=== PATIENT | male | born 1945 | race Caucasian/White ===

== ENCOUNTER 2019-05-30 13:48 | Outpatient (CLI) | payer MEDICARE | END 2019-05-30 13:49 | disposition home or self-care (01) | LOC: DTY/OP 13:48 | PROVIDERS: ATTEND Nurse Practitioner Family | DX: E11.65 Type 2 diabetes mellitus with hyperglycemia (principal) | CPT/HCPCS: 97802 ==

== ENCOUNTER 2019-06-29 06:58 | Inpatient (IN) | payer MEDICARE ==
[2019-06-29 07:43] LABS: #Basophils 0.1 thou/uL (0.0-0.2); #Eosinphils 0.4 thou/uL (0.0-0.7); #Monocytes 0.6 thou/uL (0.11-0.59); #Neutrophils 4.1 thou/uL (1.40-6.50); %Basophils 2.3 % (0.0-1.0); %Eosinophils 6.6 % (0.0-10.0); %Lymphocytes 15.8 % (21.0-51.0); %Monocytes 9.8 % (0.0-10.0); %Neutrophils 65.5 % (42.0-75.0); Hemoglobin 10.3 g/dL (14.0-18.0); Mean Corpuscular HGB CONC 32.1 g/dL (32.0-36.0); Mean Corpuscular Hemoglobin 31.1 pg (27.0-31.0); Mean Corpuscular Volume 96.8 fL (78.0-98.0); Mean Platelet Volume 8.9 fL (7.4-10.4); Platelet Count 115 thou/uL (130-400); RBC Distribution Width 14.2 % (11.5-14.5); Red Blood Cell (RBC) Count 3.32 mill/uL (4.70-6.10); White Blood Cell (WBC) Count 6.2 thou/uL (4.8-10.8)
[2019-06-29 07:47] LABS: ALT (SGPT) 50 U/L (8-55); AST (SGOT) 44 U/L (5-34); Albumin 3.4 g/dL (3.4-4.8); Alkaline Phosphatase 77 U/L (40-150); Anion Gap 13 mmol/L (10-20); BUN (Urea Nitrogen) 23 mg/dL (8.4-25.7); Bilirubin, Total 1.1 mg/dL (0.2-1.2); CK (CPK) 84 U/L (30-200); Calc. Creatinine Clearance 0 mL/min (70-130); Calcium 8.8 mg/dL (7.8-10.44); Carbon Dioxide 26 mmol/L (23-31); Chloride 105 mmol/L (98-107); Estimated GFR-MDRD 40; Glucose 105 mg/dL (83-110); Lipase 10 U/L (8-78); Potassium 4.5 mmol/L (3.5-5.1); Protein, Total 6.4 g/dL (5.8-8.1); Sodium 139 mmol/L (136-145)
--- NOTE | 2019-06-29 08:17 | RAD ---
Chest one view HISTORY: Dyspnea. FINDINGS: No comparison. Cardiac silhouette is magnified and enlarged. Pulmonary vasculature is engor ged with widespread reticulonodular interstitial prominence. Mediastinum is midline with postoperative changes. Right lateral costophrenic angle is excluded from the image. No lobar consolid ation or evidence of pneumothorax. flight agent leads overlie the chest. IMPRESSION: Cardiomegaly with pulmonary vascular congestion. Consider CHF.
[2019-06-29] MEDS ORDERED: Furosemide 40 MG/4 ML VIAL ONE (13:29)
[2019-06-29] MEDS ORDERED: Furosemide 40 MG/4 ML VIAL SLOW IVP SCH (14:00)
[2019-06-29] MEDS ORDERED: Albuterol Sulfate 2.5 mg/3 ml Neb NEB PRN (17:20)
[2019-06-29] MEDS ORDERED: diphenhydrAMINE 50 MG CAP PO PRN (17:20)
[2019-06-29] MEDS ORDERED: Dextrose 5% in Water 1,000 ML IV PRN (17:45)
[2019-06-29] MEDS ORDERED: Dextrose 50% Abboject 50 ML SYRINGE SLOW IVP PRN (17:45)
--- NOTE | 2019-06-29 20:17 | HP ---
CHIEF COMPLAINT: Shortness of breath. HISTORY OF PRESENT ILLNESS: Mr. Appiah is a very pleasant 73-year-old male with past medical history significant for coronary artery disease, status post 4-vessel CABG in 2007, congestive heart failure, unknown if this is systolic or diastolic at this time, stage 3 chronic kidney disease, type 2 diabetes mellitus , and morbid obesity, who presented to the hospital with complaints of worsening shortness of breath. The patient describes both worsening dyspnea on exertion as well as orthopnea. He has had at least a 5-pound weight gain, and has noticed significant swelling in his bilateral lower extremities. He states that he started noticing some shortness of breath about 2 months ago. Over the last couple of days, however, his symptoms have worsened. Last night, he could not lie flat or get any rest. He was in his recliner all night. He tried to go fishing with a friend of his, and a stretch in the past that he usually can negotiate easily, required multiple stops and required him to sit down to rest because of his shortness of breath. He called his daughter who is a physician, who recommended doubling up on his torsemide. However, he did not have any relief of symptoms, and so presented to the ED for further workup and treatment. On arrival, his EKG was unremarkable aside for sinus bradycardia. His troponin has been indeterminate at 0.025, 0.040, and 0.030. His BNP was significantly elevated at 776, and his chest x-ray was positive for pulmonary edema. He will be admitted to the hospitalist service for further IV diuresis and further workup. The patient is followed closely by Dr. Paul, however, cannot recall the date of his last echo, but believes it was likely at least 6 months ago. He does not recall a recent stress test, however, denies any chest pain whatsoever. He has had no dizziness or lightheadedness. No nausea or vomiting. REVIEW OF SYSTEMS: A 12-point review of systems performed and is negative except that stated above. PAST MEDICAL HISTORY: Coronary artery disease. Congestive heart failure, unknown type. Type 2 diabetes mellitus, gastric ulcer disease, hypertension, obesity. PAST SURGICAL HISTORY: Four-vessel CABG in 2007. History of ruptured gastric ulcer, status post repair with open laparotomy, which resulted in hernia with subsequent attempt at repair. PSYCHIATRIC HISTORY: Bipolar disorder. SOCIAL HISTORY: The patient denies any alcohol, drug, or smoking history. 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 FAMILY HISTORY: Noncontributory. ALLERGIES: LATEX AND NATURAL RUBBER. CURRENT MEDICATIONS: 1. Albuterol inhaler as needed. 2. Abilify 5 mg a.m., 7.5 mg q.p.m. 3. Coreg 12.5 mg b.i.d. 4. Finasteride 5 mg once daily. 5. Hydralazine 25 mg b.i.d. 6. Liothyronine 10 mcg orally once daily. 7. Synthroid 100 mcg orally once daily. 8. Nitrostat p.r.n. 9. Nystatin cream, apply topically 2 times daily. 10. Pantoprazole 40 mg orally daily. 11. Crestor 2.5 mg daily. 12. VESIcare 10 mg orally daily. 13. Tamsulosin 0.8 mg orally once daily. 14. Torsemide 20 mg orally once daily. 15. Humulin sliding scale. 16. Vitamin D3 5000 units orally once daily. OBJECTIVE: VITAL SIGNS: Blood pressure 157/73, pulse 58, O2 saturation is 97% on room air, temperature is 98. GENERAL: This is a morbidly obese male, sitting at the edge of the bed, in no acute distress. HEENT: Head is atraumatic and normocephalic. Mucous membranes are moist. CV: S1 and S2. Regular rhythm, mildly bradycardic. LUNGS: Regular respiratory rate and pattern, overall clear to auscultation. I can appreciate no crackles, rhonchi, or wheezes. ABDOMEN: Obese, positive bowel sounds. Abdominal hernia is present. EXTREMITIES: +3 edema bilaterally. NEUROLOGICAL: Cranial nerves 2 through 12 are grossly intact. The patient is nonfocal. LABORATORY DATA: White blood cell count 6.2, hemoglobin 10.3, hematocrit 32.2, platelets 115. D-dimer was 1.21. Sodium 139, potassium 4.5, anion gap is 13, creatinine 1.7. AST is 44, ALT 50, ALP 77. Troponin 0.025, 0.040, 0.030 respectively. BNP is 776. ASSESSMENT: 1. Shortness of breath secondary to acute on chronic congestive heart failure exacerbation, unknown if the patient has systolic or diastolic heart failure at this time. 2. Stage 3 chronic kidney disease, creatinine appears stable. 3. Indeterminate troponin in the setting of above 2 diagnoses. 4. Coronary artery disease, status post 4-vessel CABG. 5. Type 2 diabetes mellitus. 6. Elevated D-dimer. 7. Hypertension. 8. History of ruptured gastric ulcer, status post repair and resulting abdominal hernia. 9. Hypothyroidism. 10. Morbid obesity PLAN: At this time, the patient will be admitted to the observation unit for further workup and treatment. We will provide GI and DVT prophylaxis. We will diurese the patient as kidney function permits and monitor his electrolytes closely. Given his elevated D-dimer, I will obtain a V/Q scan to rule out pulmonary embolism. I will also order an echocardiogram to further assess his EF. We will continue his carvedilol, sliding scale insulin, and other home medications. Further recommendations based on how well the patient diuresis, as well as his hospital course. Further recommendations based on findings of noninvasive testing. Job ID: [id number] [email or web address]
[2019-06-29] MEDS: Aripiprazole 10 MG TAB PO SCH (20:35)
[2019-06-29] MEDS: Carvedilol 6.25 MG TAB PO SCH (20:35)
[2019-06-29] MEDS: Trospium 20 MG TAB PO SCH (20:36)
[2019-06-29] MEDS: Rosuvastatin 5 MG TAB PO SCH (20:36)
[2019-06-29] MEDS: hydrALAZINE 25 MG TAB PO SCH (20:37)
[2019-06-29] MEDS ORDERED: Enoxaparin Sodium 30 MG/0.3 ML SYRINGE SC SCH (21:00)
[2019-06-30 05:20] LABS: Anion Gap 13 mmol/L (10-20); BUN (Urea Nitrogen) 25 mg/dL (8.4-25.7); Calc. Creatinine Clearance 76 mL/min (70-130); Calcium 9.4 mg/dL (7.8-10.44); Carbon Dioxide 28 mmol/L (23-31); Chloride 98 mmol/L (98-107); Estimated GFR-MDRD 38; Glucose 170 mg/dL (83-110); Potassium 4.1 mmol/L (3.5-5.1); Sodium 135 mmol/L (136-145)
[2019-06-30] MEDS: Furosemide 40 MG/4 ML VIAL SLOW IVP SCH ×2 (05:54→15:23)
[2019-06-30] MEDS: Levothyroxine Sodium 100 MCG TAB PO SCH (05:55)
[2019-06-30] MEDS: HumaLOG 300 UNITS/3 ML VIAL SC PRN ×4 (06:29→21:27)
[2019-06-30] MEDS: Aripiprazole 10 MG TAB PO SCH ×2 (09:35→20:23)
[2019-06-30] MEDS: Finasteride 5 MG TAB PO SCH (09:35)
[2019-06-30] MEDS: Carvedilol 6.25 MG TAB PO SCH ×2 (09:35→20:25)
[2019-06-30] MEDS: hydrALAZINE 25 MG TAB PO SCH ×2 (09:36→20:25)
[2019-06-30] MEDS: Trospium 20 MG TAB PO SCH ×2 (09:36→20:24)
[2019-06-30] MEDS: Tamsulosin HCl 0.4 MG CAP PO SCH (09:36)
[2019-06-30] MEDS: Liothyronine Sodium 5 MCG TAB PO SCH (09:36)
[2019-06-30] MEDS: Aspirin 81 mg Enteric Coated Tablet PO SCH (09:36)
--- NOTE | 2019-06-30 10:05 | CON ---
DATE OF CONSULTATION: HISTORY OF PRESENT ILLNESS: Antoine Appiah is a 73-year-old white male, who I have followed since August 2014. While living in [place] in 2007, he had a massive gastrointestinal bleed and had a non-STEMI with this. He had to undergo emergent gastric repair, which delayed bypass surgery. Two months later, he underwent CABG. His ejection fraction apparently improved from 35% up to 65% after bypass surgery and his shortness of breath which was his main complaint improved. In November 2012, he had deep venous thrombosis and was placed on Coumadin for that. He has been relatively asymptomatic during the time that I have followed him. His last echocardiogram was in September 2018, which revealed ejection fraction of 50 % to 55% with moderate left ventricular dilatation, mild left atrial enlargement, mild mitral annular calcification, mild mitral regurgitation, evidence of diastolic dysfunction and mild tricuspid regurgitation. Two months ago, he went on a trip driving 2800 miles over 10 days. He started to notice on that trip that he had exertional dyspnea. When he returned from the trip, he started having increasing leg edema. The day prior to admission, he went fishing and had significant difficulty in walking back home and had to stop and rest several times. He then started having PND and had to sleep in a chair the night prior to admission. He came to the ER and chest x-ray revealed pulmonary edema. He has been given intravenous diuretics, and his dyspnea has improved. Prior to coming to emergency room, he talked to his daughter, who recommended that he take an extra torsemide 20 mg; however, this did not seem to help. He denies any chest discomfort with any of this. He denies any diaphoresis, nausea, or vomiting. PAST MEDICAL HISTORY: Coronary artery disease; history of systolic and diastolic failure, but ejection fraction improved after bypass surgery; diabetes, hypertension, obesity, gastric ulcer disease, hypercholesterolemia, bipolar affective disorder, hypothyroidism, and renal insufficiency. PAST SURGICAL HISTORY: CABG x4 in 2007, history of ruptured gastric ulcer in 2007, status post repair with open laparotomy, repair of hernia. MEDICATIONS: 1. Albuterol 1 puff b.i.d. p.r.n. 2. Aripiprazole 7.5 mg at bedtime, 5 mg q.a.m. 3. Aspirin 81 daily. 4. Carvedilol 12.5 b.i.d. 5. Benadryl 50 mg at bedtime p.r.n. 6. Finasteride 5 mg daily. 7. Apresoline 25 mg b.i.d. 8. Insulin 62 units at bedtime. 9. Levothyroxine 100 mcg daily. 10. Liothyronine 10 mcg daily. 11. Nystatin ointment. 12. Protonix 40 daily. 13. Rosuvastatin 2.5 mg daily. 14. VESIcare 10 mg daily. 15. Flomax 0.8 daily. 16. Torsemide 20 daily. ALLERGIES: LATEX. 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 He denies any history of alcohol or tobacco use. FAMILY HISTORY: No coronary artery disease. REVIEW OF SYSTEMS: Twelve-point review of systems unremarkable, except as noted above. PHYSICAL EXAMINATION: VITAL SIGNS: Blood pressure of 136/63, pulse of 62, sinus rhythm on the monitor. He has put out 4100 mL of urine over the last 24 hours. HEENT: PERRL. NECK: Supple. CHEST: Clear. CARDIAC: S1 and S2 normal without any S3, S4, or murmurs. ABDOMEN: Normal bowel sounds without tenderness or organomegaly. Abdomen is obese. A ventral hernia is present. EXTREMITIES: Revealed 3+ pretibial edema. NEUROLOGIC: Grossly intact. SKIN: Warm and dry. IMAGING STUDIES: EKG reveals sinus bradycardia and otherwise normal. Chest x- ray reveals cardiomegaly with pulmonary vascular congestion. V/Q scan is pending. No CT angiogram of the chest with his renal insufficiency. LABORATORY DATA: Hemoglobin 10.3, hematocrit 32.2, white count 6200, platelets 115,000. D-dimer 1.21. Sodium 135, potassium 4.1, chloride 98, carbon dioxide 28, BUN 25, creatinine 1.75 (this essentially is his baseline). Troponin I 0.030. TSH is normal. Cholesterol levels eight days ago reveal a cholesterol of 95, triglycerides 45, HDL 33, LDL 53. BNP 776.8. IMPRESSION: 1. Probable acute on chronic diastolic heart failure. His last ejection fraction was 50% to 55%. 2. History of upt-[id number] myocardial infarction prior to bypass surgery. 3. Status post coronary artery bypass graft x4 in 2007. 4. History of massive gastrointestinal bleed with ruptured gastric ulcer requiring operative repair with resulting ventral hernia in 2007. This was prior to coronary artery bypass graft. 5. Diabetes mellitus. 6. Hypercholesterolemia. 7. Hypertension. 8. Hypothyroidism. 9. Morbid obesity. 10. Chronic kidney disease, stage 3. 11. Bipolar affective disorder. 12. History of lower extremity deep vein thrombosis in 2012. PLAN: Mr. Appiah will continue to be diuresed. He had significant amount of urine output yesterday, and he will continue to be diuresed with close monitoring of his renal function. Echocardiogram will be performed. Job ID: [id number] [facility]
--- NOTE | 2019-06-30 11:01 | NM ---
NUCLEAR MEDICINE VENTILATION PERFUSION SCAN: (V/Q SCAN) DATE: 06-30-19 HISTORY: 73-year-old male with dyspnea and elevated D-Dimer. TECHNIQUE: Xenon-133 gas dose: 15.1 mCi [id number] dose: 6.4 mCi The patient inhaled Xenon-133 gas, and dynamic ventilation scintigraphy was performed. [id number] was injected IV, and multiple perfusion scintigraphic views were obtained. FINDINGS: The distribution of MAA and Xenon is homogeneous. There are no ventilation defects or perfusion defe cts; no evidence of pulmonary thromboembolism. IMPRESSION: Normal. jn POS: CET
--- NOTE | 2019-06-30 11:13 | RAD ---
XR Chest Pa Lat STANDARD History: Nuclear medicine correlation Comparison: Radiograph prior day Findings: Heart size is enlarged. No focal confluent airspace consolidation, pneumothorax, or effusio n. Multiple midline sternotomy wires. No acute osseous abnormality. Impression: Cardiomegaly with low-grade pulmonary venous congestion.
[2019-06-30 14:36] VITALS: BMI 39.2
[2019-06-30] MEDS ORDERED: Ondansetron ODT 4 MG TAB PO PRN (17:18)
[2019-06-30] MEDS ORDERED: Acetaminophen 500 MG TAB PO PRN (17:18)
[2019-06-30] MEDS ORDERED: Diabetic Tussin 200 MG/10 ML UDCUP PO PRN (17:18)
--- NOTE | 2019-06-30 17:58 | PRG ---
DATE OF SERVICE: 06/30/2019 SUBJECTIVE: Mr. Appiah is a pleasant 73-year-old male with past medical history significant for coronary artery disease, status post 4-vessel bypass grafting in 2007; chronic kidney disease stage 3, and chronic diastolic heart failure, who presented to the hospital with complaints of worsening shortness of breath, orthopnea, and weight gain along with pedal edema. The patient has been admitted with acute likely diastolic CHF exacerbation. He has been diuresing well and has lost an average of 8 pounds since his admission. His symptoms are improving, and he did get some rest last night. He continues to complain of some lower extremity edema along with some shortness of breath. He has no chest pain. No nausea or vomiting. OBJECTIVE: VITAL SIGNS: Blood pressure 132/63, pulse is 57, O2 saturation is 96% on room air, respirations are 20, and temperature 98.5. GENERAL: This is a morbidly obese male, resting in bed, in no acute distress. HEENT: Head is atraumatic and normocephalic. Mucous membranes are moist. CV: S1 and S2. Regular rate and rhythm, mildly bradycardic. LUNGS: Regular respiratory rate and pattern, overall clear to auscultation bilaterally. I can appreciate no crackles, wheezes, or rhonchi. ABDOMEN: Obese, positive bowel sounds, abdominal hernia present. EXTREMITIES: +2/3 pitting edema with some evidence of varicosities noted. NEUROLOGIC: Cranial nerves 2 through 12 are grossly intact. The patient is nonfocal. LABORATORY DATA: Sodium 135, potassium 4.1, chloride 98, creatinine 1.75, and glucose 131. ASSESSMENT: 1. Eofox-nr-zkgaujg diastolic heart failure exacerbation, last EF in September 2018 was estimated at 50% to 55%, echo pending. 2. Stage 3 chronic kidney disease, creatinine stable. 3. Coronary artery disease, status post 4-vessel CABG. 4. Type 2 diabetes mellitus. 5. Hypertension. 6. History of gastric ulcer, status post repair and resulting abdominal hernia. 7. Hypothyroidism. 8. Bipolar affective disorder. 9. History of deep vein thrombosis, 2013. PLAN: Dr. Paul, the patient's poising inspector has been consulted, and very much appreciate his recommendations. We will continue IV diuresis as kidney function permits, monitoring his electrolytes closely. We will review 2D echocardiogram when results are available. I will continue sliding scale insulin. We will also continue fluid restriction. The patient has been counseled today on importance of low-sodium and fluid restriction and the management of his heart failure. Further recommendations are based on hospital course. Job ID: [id number]
[2019-06-30] MEDS: Rosuvastatin 5 MG TAB PO SCH (20:24)
[2019-06-30] MEDS: Nystatin Cream 15 GM TUBE TOP SCH (21:04)
[2019-07-01] MEDS: Levothyroxine Sodium 100 MCG TAB PO SCH (05:13)
[2019-07-01] MEDS: Furosemide 40 MG/4 ML VIAL SLOW IVP SCH ×2 (05:13→14:11)
[2019-07-01] MEDS: HumaLOG 300 UNITS/3 ML VIAL SC PRN ×4 (05:13→21:53)
[2019-07-01 06:38] LABS: Anion Gap 12 mmol/L (10-20); BUN (Urea Nitrogen) 30 mg/dL (8.4-25.7); Calc. Creatinine Clearance 80 mL/min (70-130); Calcium 9.5 mg/dL (7.8-10.44); Carbon Dioxide 30 mmol/L (23-31); Chloride 96 mmol/L (98-107); Estimated GFR-MDRD 43; Glucose 240 mg/dL (83-110); Sodium 134 mmol/L (136-145)
[2019-07-01] MEDS: Liothyronine Sodium 5 MCG TAB PO SCH (08:49)
[2019-07-01] MEDS: Finasteride 5 MG TAB PO SCH (08:49)
[2019-07-01] MEDS: Aripiprazole 10 MG TAB PO SCH ×2 (08:49→21:55)
[2019-07-01] MEDS: Tamsulosin HCl 0.4 MG CAP PO SCH (08:49)
[2019-07-01] MEDS: hydrALAZINE 25 MG TAB PO SCH ×2 (08:50→21:56)
[2019-07-01] MEDS: Trospium 20 MG TAB PO SCH ×2 (08:50→21:55)
[2019-07-01] MEDS: Aspirin 81 mg Enteric Coated Tablet PO SCH (08:50)
[2019-07-01] MEDS: Enoxaparin Sodium 40 MG/0.4 ML SYRINGE SC SCH (08:51)
[2019-07-01] MEDS: Carvedilol 6.25 MG TAB PO SCH ×2 (08:54→21:56)
[2019-07-01] MEDS: Nystatin Cream 15 GM TUBE TOP SCH ×2 (08:58→21:57)
--- NOTE | 2019-07-01 15:57 | PRG ---
DATE OF SERVICE: 07/01/2019 SUBJECTIVE: Mr. Appiah is a pleasant 73-year-old gentleman, with a history significant for chronic diastolic heart failure; coronary artery disease, status post CABG; chronic renal insufficiency, who presented to the hospital with complaints of worsening 2 months of dyspnea on exertion, orthopnea, and worsening pedal edema. He has been admitted with acute CHF exacerbation, likely diastolic. He continues to diurese well, has lost a total of 11 pounds since his admission. He states that his breathing is very much improved. He was able to sleep through the night. His orthopnea has resolved. He continues to complain of significant edema in his bilateral lower extremities, not near baseline presently. He denies any chest pain. He denies any nausea or vomiting. OBJECTIVE: VITAL SIGNS: Blood pressure is 119/56, pulse is 57, O2 saturation is 98% on room air, temperature 97.7. GENERAL: This is a morbidly obese male, resting in bed, in no acute distress. HEENT: Head is atraumatic and normocephalic. Mucous membranes are moist. CV: S1 and S2. Regular rate and rhythm. Mildly bradycardic. LUNGS: Regular respiratory rate and pattern. Clear to auscultation bilaterally. No crackles, wheezes, or rhonchi noted. ABDOMEN: Obese. Positive bowel sounds. Abdominal hernia present. EXTREMITIES: +3 pitting edema bilaterally with some evidence of varicosities noted as well. NEUROLOGIC: Cranial nerves 2 through 12 are grossly intact. The patient is nonfocal. LABORATORY DATA: Sodium 134, potassium 4.0, carbon dioxide 96, BUN is 30, creatinine 1.6, sugar was 245. ASSESSMENT: 1. Acute on chronic diastolic heart failure exacerbation, last ejection fraction in September 2018 was estimated at 50% to 55%, echo remains pending. 2. Stage 3 chronic kidney disease, stable, creatinine has actually improved some since admission. 3. Coronary artery disease, status post 4-vessel coronary artery bypass graft. 4. Type 2 diabetes mellitus. 5. Hypertension. 6. History of ruptured gastric ulcer, status post repair with resulting abdominal hernia. 7. Hypothyroidism. 8. Bipolar affective disorder. 9. History of deep venous thrombosis in 2012. PLAN: At this point, Cardiology recommends to continue IV diuresis as the patient is not back to his baseline. We will continue to monitor his electrolytes closely. Continue DVT and GI prophylaxis. Continue sliding scale insulin. We will await echo results and adjust any heart failure medications accordingly, although likely. The patient will not be a candidate for afterload reduction with SUNNY or ARB secondary to his renal function. Further recommendations based on hospital course. Job ID: [id number]
[2019-07-01] MEDS: Rosuvastatin 5 MG TAB PO SCH (21:55)
[2019-07-02 05:34] LABS: Anion Gap 10 mmol/L (10-20); BUN (Urea Nitrogen) 30 mg/dL (8.4-25.7); Calc. Creatinine Clearance 89 mL/min (70-130); Calcium 9.3 mg/dL (7.8-10.44); Carbon Dioxide 30 mmol/L (23-31); Chloride 97 mmol/L (98-107); Estimated GFR-MDRD 48; Glucose 248 mg/dL (83-110); Sodium 133 mmol/L (136-145)
[2019-07-02] MEDS: Furosemide 40 MG/4 ML VIAL SLOW IVP SCH ×2 (06:01→14:33)
[2019-07-02] MEDS: Levothyroxine Sodium 100 MCG TAB PO SCH (06:01)
[2019-07-02] MEDS: Nystatin Cream 15 GM TUBE TOP SCH ×2 (09:24→23:23)
[2019-07-02] MEDS: Aripiprazole 10 MG TAB PO SCH ×2 (09:24→21:55)
[2019-07-02] MEDS: Trospium 20 MG TAB PO SCH ×2 (09:24→21:55)
[2019-07-02] MEDS: Enoxaparin Sodium 40 MG/0.4 ML SYRINGE SC SCH (09:24)
[2019-07-02] MEDS: Liothyronine Sodium 5 MCG TAB PO SCH (09:26)
[2019-07-02] MEDS: hydrALAZINE 25 MG TAB PO SCH ×2 (09:26→21:56)
[2019-07-02] MEDS: Finasteride 5 MG TAB PO SCH (09:26)
[2019-07-02] MEDS: Aspirin 81 mg Enteric Coated Tablet PO SCH (09:26)
[2019-07-02] MEDS: Tamsulosin HCl 0.4 MG CAP PO SCH (09:26)
[2019-07-02] MEDS: Carvedilol 6.25 MG TAB PO SCH ×2 (09:27→21:56)
[2019-07-02] MEDS: HumaLOG 300 UNITS/3 ML VIAL SC PRN ×4 (09:41→22:06)
--- NOTE | 2019-07-02 16:12 | PRG ---
DATE OF SERVICE: 07/02/2019 SUBJECTIVE: Mr. Appiah is a pleasant 73-year-old male with past medical history significant for chronic heart failure; type 2 diabetes mellitus, dependent on insulin; and CAD, status post CABG, who presented to the hospital with complaints of worsening shortness of breath over the past two months. He has been admitted with acute CHF exacerbation. He continues to diurese well, and his breathing has steadily improved. He no longer has any orthopnea. He has no shortness of breath and that is back to baseline. He continues to have fairly significant amount of swelling in his lower extremities, which he is concerned about; however, he has had this swelling present for at least 3 months or more. He denies any chest pain, nausea, or vomiting. He is tolerating his full diet. OBJECTIVE: VITAL SIGNS: Blood pressure is 141/67, pulse is 53, O2 saturation is 98% on room air, temperature is 97.8. GENERAL: This is a morbidly obese male, sitting up in bed, in no acute distress. HEENT: Head is atraumatic and normocephalic. Mucous membranes are moist. CV: S1 and S2. Regular rate and rhythm. No appreciable murmurs, rubs, or gallops, mildly bradycardic. LUNGS: Regular respiratory rate and pattern. Clear to auscultation bilaterally, no crackles, rhonchi, or wheezes noted. ABDOMEN: Obese, positive bowel sounds. Abdominal hernia present. EXTREMITIES: Continue to have +3 pitting edema bilaterally with some evidence of varicosities noted. NEUROLOGIC: Cranial nerves 2 through 12 are grossly intact. The patient is nonfocal. LABORATORY DATA: Sodium 133, potassium 4.0, chloride 97, BUN is 30, and creatinine 1.44. ASSESSMENT: 1. Combined acute on chronic systolic and diastolic heart failure exacerbation, with echocardiogram this hospitalization showing an ejection fraction of 45% to 50%, along with grade 3 diastolic dysfunction. 2. Stage 3 chronic kidney disease, stable, creatinine continues to trend down. 3. Coronary artery disease, status post 4-vessel coronary artery bypass grafting. 4. Type 2 diabetes mellitus, insulin dependent. 5. Hypertension. 6. History of ruptured gastric ulcer, status post repair with resulting abdominal hernia. 7. Hypothyroidism. 8. Bipolar affective disorder. 9. History of deep venous thrombosis in 2012. PLAN: Continue Cardiology recommendations for continued IV diuresis. Plan is to transition back to oral torsemide tomorrow. I will increase his sliding scale insulin as his sugars are trending up some. Continue DVT and GI prophylaxes. Given the patient's systolic dysfunction, addition of SUNNY or ARB would be recommended for afterload reduction; however, I do not think he will be a candidate secondary to renal function. We will continue to monitor this with daily BMP. Further recommendations based on hospital course. Job ID: [id number]
[2019-07-02] MEDS: Rosuvastatin 5 MG TAB PO SCH (21:55)
[2019-07-03] MEDS: Furosemide 40 MG/4 ML VIAL SLOW IVP SCH ×2 (05:37→15:49)
[2019-07-03] MEDS: Levothyroxine Sodium 100 MCG TAB PO SCH (05:37)
[2019-07-03 05:49] LABS: Anion Gap 12 mmol/L (10-20); BUN (Urea Nitrogen) 33 mg/dL (8.4-25.7); Calc. Creatinine Clearance 75 mL/min (70-130); Calcium 9.2 mg/dL (7.8-10.44); Carbon Dioxide 30 mmol/L (23-31); Chloride 95 mmol/L (98-107); Estimated GFR-MDRD 42; Glucose 305 mg/dL (83-110); Potassium 4.1 mmol/L (3.5-5.1); Sodium 133 mmol/L (136-145)
[2019-07-03] MEDS: Finasteride 5 MG TAB PO SCH (08:53)
[2019-07-03] MEDS: Tamsulosin HCl 0.4 MG CAP PO SCH (08:53)
[2019-07-03] MEDS: Liothyronine Sodium 5 MCG TAB PO SCH (08:53)
[2019-07-03] MEDS: Enoxaparin Sodium 40 MG/0.4 ML SYRINGE SC SCH (08:54)
[2019-07-03] MEDS: Carvedilol 6.25 MG TAB PO SCH ×2 (08:54→21:27)
[2019-07-03] MEDS: hydrALAZINE 25 MG TAB PO SCH ×2 (08:54→21:28)
[2019-07-03] MEDS: Nystatin Cream 15 GM TUBE TOP SCH ×2 (08:54→21:30)
[2019-07-03] MEDS: Aspirin 81 mg Enteric Coated Tablet PO SCH (08:54)
[2019-07-03] MEDS: HumaLOG 300 UNITS/3 ML VIAL SC PRN ×4 (08:55→21:34)
[2019-07-03] MEDS: Aripiprazole 10 MG TAB PO SCH ×2 (08:59→21:29)
[2019-07-03] MEDS: Trospium 20 MG TAB PO SCH ×2 (08:59→21:27)
[2019-07-03] MEDS ORDERED: hydrALAZINE 25 MG TAB PO SCH (10:30)
--- NOTE | 2019-07-03 19:24 | PDOC.HOSPP ---
- Subjective Subjective: f/u for Acute/chronic combined systolic/diastolic CHF on IV Lasix. Apparent 23lb weight loss since admit. Feels better overall and less swelling of LE's. Ambulating in hallways. - Objective Vital Signs & Weight: Vital Signs (12 hours) Temp Pulse Resp BP BP BP Pulse Ox 07/03/19 15:54 98.2 F 63 18 167/74 H 96 07/03/19 12:00 97.8 F 70 18 159/67 H 98 07/03/19 10:43 64 150/66 H 07/03/19 08:54 64 150/66 H 07/03/19 07:43 98.4 F 64 16 162/74 H 98 Weight Admit Weight 313 lb 9 oz Weight 290 lb 12.8 oz I&O: 07/02/19 07/03/19 07/04/19 06:59 06:59 06:59 Intake Total 490 1980 720 Output Total 2050 3250 600 Balance -1560 -1270 120 Result Diagrams: 06/29/19 07:20 07/03/19 05:14 Additional Labs: Accuchecks 07/03/19 07/03/19 07/03/19 16:34 10:47 05:48 POC Glucose 262 H 272 H 313 H 07/02/19 20:41 POC Glucose 223 H Laboratory Tests 06/29/19 06/29/19 06/29/19 07:20 07:20 13:59 Creatinine 1.70 H B-Natriuretic Peptide 776.8 H TSH 3rd Generation 3.4276 06/30/19 07/01/19 07/02/19 04:38 05:51 04:49 Creatinine 1.75 H 1.60 H 1.44 H B-Natriuretic Peptide TSH 3rd Generation Radiology Reviewed by me: Yes (Echo - EF 40-45%, inf/apex hypokinesis, grade III diast dysfxn) EKG Reviewed by me: Yes (Tele - SR) ROS - Review of Systems All systems: All other ROS were reviewed and found negative. - Medication Medications: Active Medications Generic Name Dose Route Start Last Admin Trade Name Freq PRN Reason Stop Dose Admin Acetaminophen 1,000 mg 06/30/19 17:18 06/30/19 18:19 Tylenol PO 1,000 mg Q6H PRN Administration Mild Pain (1-3) Aripiprazole 5 mg 06/30/19 09:00 07/03/19 08:59 Abilify PO 5 mg DAILY JAMES Administration Aripiprazole 7.5 mg 06/29/19 21:00 07/02/19 21:55 Abilify PO 7.5 mg HS JAMES Administration Aspirin 81 mg 06/30/19 09:00 07/03/19 08:54 Ecotrin PO 81 mg DAILY JAMES Administration Carvedilol 12.5 mg 06/29/19 21:00 07/03/19 08:54 Coreg PO 12.5 mg BID JAMES Administration Enoxaparin Sodium 40 mg 07/01/19 09:00 07/03/19 08:54 Lovenox SC 40 mg 0900 JAMES Administration Finasteride 5 mg 06/30/19 09:00 07/03/19 08:53 Proscar PO 5 mg DAILY JAMES Administration Furosemide 40 mg 06/30/19 06:00 07/03/19 15:49 Lasix SLOW IVP 40 mg 0600,1400 JAMES Administration Insulin Human Lispro 0 units 06/29/19 17:45 07/02/19 22:06 Humalog SC 2 unit .BEDTIME SLIDING SC PRN Administration Bedtime Correctional Scale Insulin Human Lispro 0 units 07/02/19 14:41 07/03/19 17:33 Humalog SC 6 unit .MODERATE SLIDING SC PRN Administration Moderate Correctional Scale Levothyroxine Sodium 100 mcg 06/30/19 06:00 07/03/19 05:37 Synthroid PO 100 mcg 0600 JAMES Administration Liothyronine Sodium 10 mcg 06/30/19 09:00 07/03/19 08:53 Cytomel PO 10 mcg DAILY JAMES Administration Nystatin 1 gm 06/30/19 21:00 07/03/19 08:54 Mycostatin Cream TOP 1 applic BID JAMES Administration Pantoprazole Sodium 40 mg 06/30/19 09:00 07/03/19 08:53 Protonix PO 40 mg DAILY JAMES Administration Rosuvastatin Calcium 2.5 mg 06/29/19 21:00 07/02/19 21:55 Crestor PO 2.5 mg HS JAMES Administration Sodium Chloride 10 ml 06/30/19 21:00 07/03/19 08:55 Flush - Normal Saline IVF 10 ml Q12HR JAMES Administration Tamsulosin HCl 0.8 mg 06/30/19 09:00 07/03/19 08:53 Flomax PO 0.8 mg DAILY JAMES Administration Trospium 20 mg 06/29/19 21:00 07/03/19 08:59 Trospium PO 20 mg BID JAMES Administration - Exam NAD, awake alert Eye: PERRL, anicteric sclera ENT: normocephalic atraumatic, no oropharyngeal lesions Neck: supple, symmetric, no JVD, no Thyromegaly Heart: RRR, no gallops, no rubs, normal peripheral pulses Respiratory: CTAB, no wheezes, no rales, no ronchi, normal chest expansion Gastrointestinal: soft, non-tender, non-distended, normal bowel sounds (ventral abd hernia noted) Extremities: no cyanosis, 2+ LE edema Skin: normal turgor Neurological: CN's grossly intact, no focal deficits, no new deficit Musculoskeletal: normal tone, no muscle wasting Psychiatric: normal behavior, A&O x 3 Hosp A/P (1) Acute on chronic combined systolic and diastolic CHF, NYHA class 3 Code(s): I50.43 - ACUTE ON CHRONIC COMBINED SYSTOLIC AND DIASTOLIC HRT FAIL Status: Acute Plan: EF 40-45%, continue Lasix IV another 24h, 23lb weight loss currently (2) CKD (chronic kidney disease), stage III Code(s): N18.3 - CHRONIC KIDNEY DISEASE, STAGE 3 (MODERATE) Status: Chronic Plan: Stable currently, avoid nephrotoxic meds and limit contrast, serial creatinine (3) Hypothyroid Code(s): E03.9 - HYPOTHYROIDISM, UNSPECIFIED Status: Chronic Plan: Continue Levothyroxine 100mcg daily (4) CAD (coronary artery disease) Code(s): I25.10 - ATHSCL HEART DISEASE OF [place] CORONARY ARTERY W/O ANG PCTRS Status: Chronic Plan: Continue ASA, Coreg (5) Bipolar disorder Code(s): F31.9 - BIPOLAR DISORDER, UNSPECIFIED Status: Chronic Plan: Continue Abilify - 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
[2019-07-03] MEDS: Rosuvastatin 5 MG TAB PO SCH (21:28)
[2019-07-04 04:52] LABS: Anion Gap 12 mmol/L (10-20); BUN (Urea Nitrogen) 33 mg/dL (8.4-25.7); Calc. Creatinine Clearance 80 mL/min (70-130); Calcium 9.3 mg/dL (7.8-10.44); Carbon Dioxide 30 mmol/L (23-31); Chloride 96 mmol/L (98-107); Estimated GFR-MDRD 45; Glucose 257 mg/dL (83-110); Potassium 3.9 mmol/L (3.5-5.1); Sodium 134 mmol/L (136-145)
[2019-07-04] MEDS: Furosemide 40 MG/4 ML VIAL SLOW IVP SCH (05:45)
[2019-07-04] MEDS: Levothyroxine Sodium 100 MCG TAB PO SCH (05:46)
[2019-07-04] MEDS: Aripiprazole 10 MG TAB PO SCH (09:44)
[2019-07-04] MEDS: Aspirin 81 mg Enteric Coated Tablet PO SCH (09:44)
[2019-07-04] MEDS: Trospium 20 MG TAB PO SCH (09:44)
[2019-07-04] MEDS: Tamsulosin HCl 0.4 MG CAP PO SCH (09:44)
[2019-07-04] MEDS: hydrALAZINE 25 MG TAB PO SCH (09:45)
[2019-07-04] MEDS: Carvedilol 6.25 MG TAB PO SCH (09:45)
[2019-07-04] MEDS: Finasteride 5 MG TAB PO SCH (09:45)
[2019-07-04] MEDS: Nystatin Cream 15 GM TUBE TOP SCH (09:45)
[2019-07-04] MEDS: Enoxaparin Sodium 40 MG/0.4 ML SYRINGE SC SCH (09:46)
[2019-07-04] MEDS: Liothyronine Sodium 5 MCG TAB PO SCH (09:47)
[2019-07-04] MEDS: HumaLOG 300 UNITS/3 ML VIAL SC PRN (12:19)
[2019-07-04 12:51] VITALS: BP 161/70; TEMP 98.2
[2019-07-04] MEDS ORDERED: Torsemide 20 MG TAB PO SCH (14:00)
--- NOTE | 2019-07-05 03:15 | DIS ---
DATE OF ADMISSION: 06/29/2019 DATE OF DISCHARGE: 07/04/2019 DISCHARGE DIAGNOSES: 1. Acute on chronic combined systolic and diastolic congestive heart failure, [place] Heart Association class III. 2. Chronic kidney disease stage 3. 3. Hypothyroidism. 4. Coronary artery disease, chronic and stable. 5. Bipolar disorder. 6. Diabetes mellitus type 2, insulin requiring, labile. CONSULTATIONS: Dr. Richard Paul with Cardiology Service. PERTINENT LABORATORY AND X-RAY FINDINGS: Sodium ranged between 133 to 139. Creatinine ranged between 1.44 to 1.70. Estimated GFR ranged between 38 to 48. Troponin I ranged between 0.025 to 0.040. BNP 777. TSH 3.43. CBC showed a white blood cell count of 6.2, hemoglobin 10, hematocrit 32, platelet count 115. Portable chest x-ray dated 06/29/2019, showed cardiomegaly with pulmonary vascular edema. Portable chest x-ray dated 06/30/2019, showed cardiomegaly with low-grade pulmonary vascular prominence. Ventilation-perfusion scan dated 06/30/2019, showed normal exam. 2D transthoracic echocardiogram dated 07/01/2019, showed ejection fraction of 45% to 50%. Grade 3 diastolic dysfunction. Inferior and apical hypokinesis. Severe left atrial enlargement noted. HOSPITAL COURSE: The patient was initially admitted after presenting with shortness of breath in the context of known coronary artery disease and congestive heart failure in the context of chronic kidney disease stage 3. The patient underwent extensive evaluation including repeat 2D transthoracic echocardiogram showing ejection fraction of 45% to 50% with systolic and diastolic components of heart failure. The patient was placed on IV Lasix and monitored for clinical response. The patient exhibited approximately 23 pounds weight loss during the hospital course with excellent diuresis noted. The patient was evaluated by the Cardiology Service with recommendations to titrate the diuretic regimen to optimal response. The patient was increased on his hydralazine to 50 mg b.i.d. and continued on Coreg 12.5 mg b.i.d. The patient continued to clinically stabilize with diuretic therapy with telemetry monitoring showing sinus mechanism with a short run of nonsustained ventricular tachycardia. Vital signs remained stable and the patient was noted ambulating with a rolling walker without complication. Overall, the patient did remain clinically stable during the hospital course and ready for discharge on 07/04/2019. I have examined the patient at time of discharge and discussed followup instructions. The patient verbalized understanding and agreement, ready for discharge on 07/04/2019. DISCHARGE MEDICATIONS: 1. Ventolin nebulized solution one inhalation b.i.d. p.r.n. 2. Aripiprazole 5 mg p.o. daily and 7.5 mg p.o. at bedtime. 3. Enteric-coated aspirin 81 mg p.o. daily. 4. Coreg 12.5 mg p.o. b.i.d. 5. Benadryl 50 mg p.o. at bedtime p.r.n. 6. Finasteride 5 mg p.o. daily. 7. Tresiba Flextouch 62 units subcutaneously at bedtime. 8. Synthroid 100 mcg p.o. daily. 9. Liothyronine 10 mcg p.o. daily. 10. Nystatin one application topically t.i.d. p.r.n. 11. Protonix 40 mg p.o. daily. 12. Crestor 2.5 mg p.o. daily. 13. VESIcare 10 mg p.o. daily. 14. Flomax 0.8 mg p.o. daily. 15. Hydralazine 50 mg p.o. b.i.d. 16. Demadex 20 mg p.o. b.i.d. FOLLOWUP: The patient may follow up with his primary care provider, Dr. Alf Ramos within 7 days of discharge. The patient will follow up with Dr. Richard Paul and to call his office for appointment time and date. CONDITION ON DISCHARGE: Stable. ACTIVITY: Ad-solange. DIET: ADA and heart healthy with 1.5 L per 24 hour fluid restriction. CODE STATUS: Do not attempt resuscitation. DISPOSITION: Home on 07/04/2019. TIME SPENT: Total time preparing and coordinating discharge, 35 minutes. Job ID: [id number]
== END 2019-07-04 15:20 | disposition home or self-care (01) | DRG 291 ==
LOC: SCSER 06:58 → 2SW 09:00 → OBSVTOIN 09:00 → 2NO 07-01 19:50
PROVIDERS: ADMIT Family Medicine; ATTEND Family Medicine
DX: I13.0 Hypertensive heart and chronic kidney disease with heart failure and stage 1 through stage 4 chronic kidney disease, or unspecified chronic kidney disease (principal); I50.43 Acute on chronic combined systolic (congestive) and diastolic (congestive) heart failure; I25.10 Atherosclerotic heart disease of native coronary artery without angina pectoris; Z66 Do not resuscitate; N18.3 Chronic kidney disease, stage 3 (moderate); E11.22 Type 2 diabetes mellitus with diabetic chronic kidney disease; F31.9 Bipolar disorder, unspecified; E03.9 Hypothyroidism, unspecified; E66.01 Morbid (severe) obesity due to excess calories; E78.00 Pure hypercholesterolemia, unspecified; Z79.82 Long term (current) use of aspirin; Z95.1 Presence of aortocoronary bypass graft; Z87.11 Personal history of peptic ulcer disease; Z79.899 Other long term (current) drug therapy; Z91.040 Latex allergy status; Z79.4 Long term (current) use of insulin; Z68.37 Body mass index [BMI] 37.0-37.9, adult; Z86.718 Personal history of other venous thrombosis and embolism
CPT/HCPCS: 36415; 36416; 71045; 71046; 78582; 80048; 80053; 82550; 83690; 83880; 84443; 84484; 85025; 85379; 93005; 93306; 93798; 94760; 99214; A9540; A9558; G0463; J1650; J1940

== ENCOUNTER 2019-07-20 11:54 | Outpatient (CLI) | payer MEDICARE ==
--- NOTE | 2019-07-20 16:35 | ULT ---
RIGHT LOWER EXTREMITY VENOUS DOPPLER ULTRASOUND: 07/20/19 COMPARISON: None. HISTORY: Right leg edema, redness and pain. TECHNIQUE: Multiplanar rivera scale sonographic imaging of the venous structures right lower extremity obtained wi th color flow and spectral analysis. FINDINGS: Right common femoral vein, profunda femoral vein, femoral vein, popliteal vein, greater saphenous vei n, and posterior tibial vein are patent. Normal blood flow, augmentation and compression. No evidence for DVT. IMPRESSION: No evidence for deep venous thrombosis of the right lower extremity. POS: TPC
== END 2019-07-20 11:55 | disposition home or self-care (01) ==
LOC: SCSULT 11:54
PROVIDERS: ATTEND Nurse Practitioner Family
DX: M79.604 Pain in right leg (principal)

== ENCOUNTER 2019-08-21 08:02 | Outpatient (CLI) | payer MEDICARE ==
--- NOTE | 2019-08-21 10:27 | RAD ---
RIGHT FOOT 3 VIEWS: HISTORY: Osteomyelitis. COMPARISON: None. FINDINGS: There appears to be a nondisplaced fracture of the small toe metatarsal neck extending into the metat arsophalangeal joint. There are severe hindfoot degenerative changes with debris with loss of cortic al cyst formation of the anterior process calcaneus. Severe degenerative change of the mid foot. Mi ld hallux valgus deformity. There appears to be an ulcer of the great toe at the level of the interphalangeal joint. No erosion is appreciated. Mild hallux valgus deformity with lateral subluxation of sesamoids. Moderate arteri al medial sclerosis. IMPRESSION: 1. Soft tissue ulcer at the level of the great toe interphalangeal joint without definite evidence o f osteomyelitis. MRI recommended if clinically warranted. 2. Likely a nondisplaced fracture of the small toe metatarsal head extending into the metatarsophala ngeal joint. 3. Diabetic mid foot and hindfoot arthropathy. POS: CET
--- NOTE | 2019-08-21 11:00 | HP ---
HISTORY OF PRESENT ILLNESS: Mr. Antoine Appiah is a very pleasant 74-year- old gentleman accompanied by his spouse, who presents to the Wound Center for evaluation of an ulceration of the plantar surface of the right hallux. The patient states that he has had a callus over the plantar surface of the right great toe "forever." He states that this callus has been trimmed by Podiatry every 10 weeks. The patient states that in April or May of this year, he fell in the bathroom and knocked the callus loose. He states that after an admission for congestive heart failure to [facility], he was placed on dressing changes of Medihoney during his hospital stay. The patient states that after his discharge from the hospital, he has been seen by Dr. Juan every 10 days, and when the ulceration was noted to fail to decrease in its dimensions, the patient was referred to the Wound Center for further evaluation and treatment. The patient states that he has been covering his wound while showering. The patient states that prior to dressing changes with Medihoney, he had been dressing the wound with triple antibiotic ointment after cleansing of the wound in the shower with soap and water. The patient states he has not had plain films of the right foot. He also reports taking ciprofloxacin for a urinary tract infection. He states he will complete this course of p.o. antibiotics tomorrow. PAST MEDICAL HISTORY: 1. Coronary artery disease. 2. Congestive heart failure. 3. Diabetes mellitus. 4. Peptic ulcer disease. 5. Hypertension. 6. Hypothyroidism. 7. Chronic kidney disease stage 3. PAST SURGICAL HISTORY: 1. Coronary artery bypass grafting x4. 2. Surgery for perforated gastric ulcer. 3. Herniorrhaphy. 4. Back surgery. MEDICATIONS: 1. Albuterol. 2. Abilify. 3. Enteric-coated aspirin. 4. Benadryl. 5. Coreg. 6. Finasteride. 7. Humulin. 8. Hydralazine. 9. Liothyronine. 10. Synthroid. 11. Metolazone with potassium. 12. Nitrostat. 13. Protonix. 14. Crestor. 15. Super B complex vitamin. 16. Flomax. 17. Torsemide. 18. Tylenol. 19. Vitamin D3. 20. P.o. antibiotics. ALLERGIES: LATEX. SOCIAL HISTORY: Social history is significant for tobacco use for 18 months of 5 cigarettes per day during the patient's early 20s. The patient denies any history of EtOH use. FAMILY HISTORY: Family history is negative for diabetes mellitus or coronary artery disease. PHYSICAL EXAMINATION: VITAL SIGNS: Temperature 97.6, pulse 63, respirations 19, blood pressure 130/60 , Accu-Chek 132. GENERAL: A 74-year-old gentleman lying on table in examination room, in no acute distress. HEENT: Normocephalic and atraumatic. NECK: No nuchal rigidity. CHEST: Clear to auscultation. CV: Regular rate and rhythm. ABDOMEN: Soft. EXTREMITIES: An ulceration of the plantar surface of the right great toe is present, which measures approximately 1.7 x 1.2 cm. A small amount of granulation tissue is visible within the wound margins. Necrotic and nonviable tissue present within the wound margins is debrided with an excisional full-thickness debridement with the use of scissors and a curette. No purulent drainage is associated with the wound. Slight erythema of the dorsum of the right great toe is present on exam today. No maceration of the skin of the periwound is noted. A dorsalis pedis pulse is not palpable on the right. A posterior tibial pulse is palpable on the right. Edema of the right foot is also noted on today's exam. ASSESSMENT AND PLAN: 1. 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 Dressing changes of Regranex will be initiated today. These dressing changes are to be performed on a daily basis after cleansing and irrigation. The patient's will be assisting Mr. Appiah with his dressing changes. Arrangements will be made for the home delivery of Regranex. The patient is to continue ciprofloxacin as previously prescribed. Plain films of the right foot will be obtained today to look for findings suggestive of osteomyelitis. I will see Mr. Appiah again in 1 week. The patient states he will be seen by Dr. Juan tomorrow. The patient and his understand and are in agreement with the preceding treatment plan. 2. Coronary artery disease. 3. Congestive heart failure. 4. Diabetes mellitus. The patient's Accu-Chek in clinic today is 132. The patient has been told that for optimal wound healing, his blood glucoses should remain below 150. 5. Peptic ulcer disease. 6. Hypertension. 7. Hypothyroidism. 8. Chronic kidney disease stage 3. Job ID: [id number] MTDD
[2019-08-21] MEDS ORDERED: Sodium Chloride 0.9% 15 ML NEB ONE (17:00)
== END 2019-08-21 08:03 | disposition home or self-care (01) ==
LOC: WCC 08:02 → RAD 08:03
PROVIDERS: ATTEND Family Medicine
DX: E11.621 Type 2 diabetes mellitus with foot ulcer (principal); L97.419 Non-pressure chronic ulcer of right heel and midfoot with unspecified severity; M19.071 Primary osteoarthritis, right ankle and foot
CPT/HCPCS: 11042; 99203; A4218; G0463

== ENCOUNTER 2019-08-28 09:30 | Outpatient (CLI) | payer MEDICARE ==
--- NOTE | 2019-08-28 11:35 | PRG ---
DATE OF SERVICE: 08/28/2019 HISTORY: Mr. Antoine Appiah is a very pleasant 74-year-old gentleman accompanied by his spouse, who presents to the wound center for evaluation of an ulceration of the plantar surface of the right hallux. The patient previously stated that he has had a callus over the plantar surface of the right great toe "for ever." He stated that this callus had been trimmed by Podiatry every 10 weeks. The patient stated that in April or May of this year, he fell in the bathroom and knocked the callus loose. He stated that after an admission for congestive heart failure to [facility], he was placed on dressing changes of Medihoney during his hospital stay. The patient stated that after his discharge from the hospital, he had been seen by Dr. Juan every 10 days and when the ulceration was noted to have failed to decrease in its dimensions, the patient was referred to the wound center for further evaluation and treatment. The patient stated that he had been covering his wound while showering prior to being seen in the wound center. The patient stated that prior to dressing changes with Medihoney, he had been dressing the wound with triple antibiotic ointment after cleansing of the wound in the shower with soap and water. PHYSICAL EXAMINATION: VITAL SIGNS: Temperature 97.7, pulse 59, respirations 22, and blood pressure 164/70. Accu-Chek 211. EXTREMITIES: An ulceration of the plantar surface of the right great toe is present, which measures approximately 1.7 x 1.1 cm. The dimensions of the wound at the time of the patient's last visit were approximately 1.7 x 1.2 cm. Granulation tissue is visible within the wound margins. Necrotic and nonviable tissue present within the wound margins was debrided with an excisional full-thickness debridement with the use of scissors and a curette. No purulent drainage is associated with the wound. Slight erythema of the dorsum of the right great toe is again noted on exam today. No maceration of the skin of the periwound is noted. ASSESSMENT AND PLAN: 1. 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 Arrangements for the initiation of treatment with Regranex will continue. Arrangements will also be made for MRI of the right foot to look for findings suggestive of osteomyelitis. Plain films showed no evidence for osteomyelitis. The patient has a followup appointment with Dr. Juan in 1 week. I will see Mr. Appiah again in 2 weeks. 2. Coronary artery disease. 3. Congestive heart failure. 4. Diabetes mellitus. The patient's Accu-Chek in clinic today is 211. The patient has been reminded that for optimal wound healing, his blood glucoses should remain below 150. 5. Peptic ulcer disease. 6. Hypertension. 7. Hypothyroidism. 8. Chronic kidney disease stage 3. Job ID: [id number]
[2019-08-28] MEDS ORDERED: Sodium Chloride 0.9% 15 ML NEB ONE (16:50)
== END 2019-08-28 09:31 | disposition home or self-care (01) ==
LOC: WCC 09:30
PROVIDERS: ATTEND Family Medicine
DX: E11.621 Type 2 diabetes mellitus with foot ulcer (principal); L97.519 Non-pressure chronic ulcer of other part of right foot with unspecified severity; I25.10 Atherosclerotic heart disease of native coronary artery without angina pectoris; I50.9 Heart failure, unspecified; K27.9 Peptic ulcer, site unspecified, unspecified as acute or chronic, without hemorrhage or perforation; I13.0 Hypertensive heart and chronic kidney disease with heart failure and stage 1 through stage 4 chronic kidney disease, or unspecified chronic kidney disease; E11.22 Type 2 diabetes mellitus with diabetic chronic kidney disease; N18.3 Chronic kidney disease, stage 3 (moderate); E03.9 Hypothyroidism, unspecified
CPT/HCPCS: 11042; A4218

== ENCOUNTER 2019-09-13 10:51 | Outpatient (CLI) | payer MEDICARE ==
--- NOTE | 2019-09-13 13:22 | MRI ---
MRI RIGHT FOREFOOT: 09/13/2019 PROVIDED CLINICAL HISTORY: Great toe ulcer. FINDINGS: There is cutaneous irregularity and signal alteration within the subcutaneous adipose layer at the pl candy-medial aspect of the great toe, presumably reflecting the provided clinical history of wound/ul cer. There is diminished T1 signal intensity and increased signal intensity on the fluid sensitive sequenc es involving the subjacent great toe proximal phalanx distally and the great toe distal phalanx proxi carrie at the medial aspects of both these phalanges. Regional marrow signal appears otherwise unremarkable. Assessment for a focal fluid collection, such as abscess, is limited in the absence of IV contrast material, without gross evidence for such. No re gional joint effusion is evident. The dorsal extensor and plantar flexor tendons appear intact. Nonsp ecific, noncircumscribed fluid signal intensity within the subcutaneous adipose layer circumferential ly about the foot. Prominent diffuse fatty infiltration of the intrinsic foot musculature. Alignment appears anatomic. Joint spaces appear preserved. First MTP joint degenerative changes are seen. IMPRESSION: Signal changes involving the great toe, proximal and distal phalanges, as described, compatible with osteomyelitis in the appropriate clinical context. POS: OFF
== END 2019-09-13 10:52 | disposition home or self-care (01) ==
LOC: SCSMRI 10:51
PROVIDERS: ATTEND Family Medicine
DX: E11.621 Type 2 diabetes mellitus with foot ulcer (principal); L97.519 Non-pressure chronic ulcer of other part of right foot with unspecified severity

== ENCOUNTER 2019-09-18 13:06 | Outpatient (CLI) | payer MEDICARE ==
[~2019-09-18 13:06] MED LIST: Sodium Chloride 0.9% 15 ML NEB ONE
--- NOTE | 2019-09-18 14:08 | PRG ---
DATE OF SERVICE: 09/18/2019 HISTORY: Mr. Antoine Appiah is a very pleasant 74-year-old gentleman accompanied by his spouse, who presents to the Wound Center for evaluation of an ulceration of the plantar surface of the right hallux. The patient previously stated that he had had a callus over the plantar surface of the right great toe "forever." He stated that this callus had been trimmed by Podiatry every 10 weeks. The patient stated that in April or May of this year, he fell in the bathroom and knocked the callus loose. He stated that after an admission for congestive heart failure to [facility], he was placed on dressing changes of Medihoney during his hospital stay. The patient stated that after his discharge from the hospital, he had been seen by Dr. Juan every 10 days and when the ulceration was noted to have failed to decrease in its dimensions, the patient was referred to the Wound Center for further evaluation and treatment. The patient stated that he had been covering his wound while showering prior to being seen in the Wound Center. The patient stated that prior to dressing changes of Medihoney, he had been dressing the wound with triple antibiotic ointment after cleansing of the wound in the shower with soap and water. PHYSICAL EXAMINATION: VITAL SIGNS: Temperature 98.1, pulse 65, respirations 18, and blood pressure 124/76. Accu-Chek 239. EXTREMITIES: An ulceration of the plantar surface of the right great toe is present, which measures approximately 1.4 x 0.7 cm. The dimensions of the wound at the time of the patient's last visit were approximately 1.7 x 1.1 cm. Granulation tissue is present within the wound margins. No purulent drainage is associated with the wound. No maceration of the skin of the periwound is noted. ASSESSMENT AND PLAN: 1. 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 Dressing changes of Regranex will be continued on a daily basis after cleansing and irrigation with the assistance of the patient's . MRI of the right foot revealed findings compatible with osteomyelitis of the great toe. Arrangements will be made for evaluation by Infectious Diseases. The patient has a followup appointment with Dr. Juan later this week. I will see Mr. Appiah again after he has been seen in consultation by Dr. Jake Rainer. 2. Coronary artery disease. 3. Congestive heart failure. 4. Diabetes mellitus. The patient's Accu-Chek in clinic today is 239. The patient has been reminded that for optimal wound healing, his blood glucoses should remain below 150. 5. Peptic ulcer disease. 6. Hypertension. 7. Hypothyroidism. 8. Chronic kidney disease, stage 3. Job ID: [id number]
== END 2019-09-18 13:07 | disposition home or self-care (01) ==
LOC: WCC 13:06
PROVIDERS: ATTEND Family Medicine
DX: E11.621 Type 2 diabetes mellitus with foot ulcer (principal); L97.519 Non-pressure chronic ulcer of other part of right foot with unspecified severity; I13.0 Hypertensive heart and chronic kidney disease with heart failure and stage 1 through stage 4 chronic kidney disease, or unspecified chronic kidney disease; E11.22 Type 2 diabetes mellitus with diabetic chronic kidney disease; I50.9 Heart failure, unspecified; N18.3 Chronic kidney disease, stage 3 (moderate); E11.40 Type 2 diabetes mellitus with diabetic neuropathy, unspecified; I25.10 Atherosclerotic heart disease of native coronary artery without angina pectoris; E03.9 Hypothyroidism, unspecified; K27.9 Peptic ulcer, site unspecified, unspecified as acute or chronic, without hemorrhage or perforation
CPT/HCPCS: A4218

== ENCOUNTER → 2019-10-05 | Day surgery (SDC) | payer MEDICARE ==
[~2019-10-05] MED LIST changes: +Heparin 1,000 UNITS/ML VIAL ONE; -Sodium Chloride 0.9% 15 ML NEB ONE
--- NOTE | 2019-10-05 10:54 | SPC ---
LEFT UPPER EXTREMITY PICC LINE WITH SONOGRAPHIC GUIDANCE: HISTORY: Osteomyelitis. COMPARISON: None. EXPOSURE: 0.4 minutes, 7,232 mGy*^m sq. FINDINGS: Successful left upper artery PICC line placement. Distal tip is in the right atrium. Trim length is 4 8 cm. Single-lumen catheter does flush and aspirate without any difficulty. TECHNIQUE: Consent obtained to perform a left upper tree PICC line with ultrasound guidance. Left arm was preppe d and draped in a sterile fashion. 1% lidocaine, buffered with sodium bicarbonate was used for local anesthesia. Under sonographic guidance, micropuncture needle was used to cannulate the brachial vein. A 0.018 guidewire was advanced through the needle to the level of the right atrium. Under fluoroscopy, the wire was advanced into the inferior vena cava to document venous access. Tract was d ilated. A single-lumen 5 Kinyarwanda catheter was advanced over the wire. Catheter flushes and aspirates without difficulty. IMPRESSION: 1. Successful left upper extremity PICC line placement with ultrasound guidance. 2. 48 cm trim length. Catheter does flush and aspirate without difficulty. Transcribed Date/Time: 10/05/2019 10:58 AM
== END ==
LOC: SPEC 09:33
PROVIDERS: ATTEND Internal Medicine Infectious Disease
PROC: 06H033Z Insertion of Infusion Device into Inferior Vena Cava, Percutaneous Approach (ICD-10-PCS; principal; 2019-10-05)
DX: M86.9 Osteomyelitis, unspecified (principal); E11.9 Type 2 diabetes mellitus without complications; Z91.040 Latex allergy status
CPT/HCPCS: 36569; C1751; J1644

== ENCOUNTER 2019-11-24 09:10 | Outpatient (CLI) | payer MEDICARE ==
--- NOTE | 2019-11-24 11:01 | ULT ---
Bilateral renal ultrasound with renal Doppler evaluation CLINICAL INDICATION: Chronic kidney disease. COMPARISON: None FINDINGS: Right kidney: There is no evidence of a renal mass, renal calculus, or hydronephrosis seen. The right kidney measures 12.9 cm x 5.4 cm. Left kidney: There is no evidence of a renal mass, renal calculus, or hydronephrosis. The left kidney measures 13 cm x 6.2 cm. Urinary bladder: Within normal limits for degree of distention. Renal Doppler evaluation with spectral analysis and color flow evaluation: Peak systolic velocity in the right renal artery is 66.2 cm/s and on the left the velocity is 104.2 c m/s. Peak systolic velocity in the abdominal aorta is 46.1 cm/s. The right renal artery to aorta ratio is 1.44, and the left renal artery to aorta ratio is 2.26. Normal renal artery to aorta ratio i s less than 3. Resistant indices in the right renal arcuate arteries range from 0.76 to 0.82. The resistive indices in the left renal arcuate arteries range from 0.73 to 0.92. Normal resistive indices are less than 0.7. IMPRESSION: 1. No evidence of hydronephrosis. 2. Mildly elevated resistive indices in the arcuate arteries bilaterally.
== END 2019-11-24 09:11 | disposition home or self-care (01) ==
LOC: SCSULT 09:10
PROVIDERS: ATTEND Internal Medicine Nephrology
DX: I13.10 Hypertensive heart and chronic kidney disease without heart failure, with stage 1 through stage 4 chronic kidney disease, or unspecified chronic kidney disease (principal); E11.22 Type 2 diabetes mellitus with diabetic chronic kidney disease; N18.3 Chronic kidney disease, stage 3 (moderate); R80.9 Proteinuria, unspecified; I73.9 Peripheral vascular disease, unspecified; E78.5 Hyperlipidemia, unspecified; I25.10 Atherosclerotic heart disease of native coronary artery without angina pectoris; J44.9 Chronic obstructive pulmonary disease, unspecified; E03.9 Hypothyroidism, unspecified; K21.9 Gastro-esophageal reflux disease without esophagitis; M19.90 Unspecified osteoarthritis, unspecified site; E66.9 Obesity, unspecified; N40.0 Benign prostatic hyperplasia without lower urinary tract symptoms
CPT/HCPCS: 76770; 93975